=== PATIENT | female | born 1965 | race African-American/Black ===

== ENCOUNTER 2017-08-09 05:52 | Day surgery (SDC) | payer OTHER ==
[~2017-08-09] VITALS: Ht 170.2 cm; Wt 86.6 kg
[2017-08-09] MEDS ORDERED: IBUPROFEN 800 MG TAB PO PRN (13:45)
[2017-08-09] MEDS ORDERED: ACETAMINOPHEN/CODEINE 300/30MG 1 TAB PO PRN (13:45)
[2017-08-09] MEDS ORDERED: ONDANSETRON 4 MG/2 ML VIAL IVP PRN (13:45)
[2017-08-09] MEDS ORDERED: MORPHINE SULFATE 4 MG/ML SYR IM/IVP PRN (13:45)
[2017-08-09] MEDS ORDERED: ONDANSETRON 4 MG/2 ML VIAL IVP ONE (14:31)
[2017-08-09] MEDS ORDERED: PROPOFOL 200 MG/20 ML VIAL IV ONE (14:31)
[2017-08-09] MEDS ORDERED: fentaNYL 0.05 MG/ML VIAL ONE (14:39)
[2017-08-09] MEDS ORDERED: MIDAZOLAM 2 MG/2 ML VIAL ONE (14:40)
[2017-08-09] MEDS ORDERED: MIDAZOLAM 2 MG/2 ML VIAL IV ONE (15:00)
[2017-08-09] MEDS ORDERED: MORPHINE SULFATE 4 MG/ML SYR IVP PRN ×2 (15:00)
[2017-08-09] MEDS ORDERED: METOCLOPRAMIDE 10 MG/2 ML INJ VIAL IVP PRN (15:00)
[2017-08-09] MEDS ORDERED: MORPHINE SULFATE 2 MG/ML SYR IVP PRN (15:00)
== END 2017-08-09 19:15 | disposition home or self-care (01) ==
LOC: MDS 05:52 → MMU 06:03 → MFCC 18:15 → MDS 19:15
PROVIDERS: ATTEND Obstetrics & Gynecology
DX: N95.0 Postmenopausal bleeding (principal); Z98.890 Other specified postprocedural states
CPT/HCPCS: 58120; J2250; J2405; J2704; J3010; J7120